=== PATIENT | female | born 1970 | race African-American/Black ===

== ENCOUNTER 2017-07-09 07:46 | Emergency (ER) | payer SELFPAY ==
[~2017-07-09] VITALS: Ht 170.2 cm; Wt 93.0 kg
[~2017-07-09 07:46] MED LIST: ALBU18HF2 IH; DIPH25CA83 PO; EMTR1TAB11 PO; LEXIVA PO; PREN-88 PO; [UNRECOGNIZED DRUG - REMARK]
[2017-07-09] MEDS ORDERED: KETOROLAC 30MG/ML VIAL IM ONE (11:00)
[2017-07-09 11:15] VITALS: BP 166/91
== END 2017-07-09 11:23 | disposition home or self-care (01) ==
LOC: ER 08:07
DX: M54.12 Radiculopathy, cervical region (principal); F17.210 Nicotine dependence, cigarettes, uncomplicated; Z88.6 Allergy status to analgesic agent; Z91.018 Allergy to other foods; R03.0 Elevated blood-pressure reading, without diagnosis of hypertension
CPT/HCPCS: 96372; 99283; J1885